=== PATIENT | male | born 1970 | race Hispanic/Latino ===

== ENCOUNTER 2019-03-01 15:57 | Emergency (ER) | payer OTHER ==
--- NOTE | 2019-03-01 17:13 | RAD REPORT ---
EXAM DESCRIPTION: RAD - Pelvis - 03/01/2019 4:53 pm CLINICAL HISTORY: Pelvic pain status post injury FINDINGS: No fracture or dislocation is seen. If the patient continues to have symptoms to suggest an occult fracture then MRI would be recommended
[2019-03-01] MEDS ORDERED: HYDROCODONE/APAP 7.5/325 MG TAB ONE (17:32)
--- NOTE | 2019-03-01 17:33 | ER ---
Nurse's Notes [facility] [place] Name: Ty Bernal Age: 48 yrs Sex: Male : 1970 Arrival Date: 03/01/2019 Time: 15:59 Bed 25 Private MD: Diagnosis: Contusion of lower back and pelvis;Fall on same level from slipping, tripping and stumbling Presentation: 03/01 16:06 Presenting complaint: Patient states: "I fell in the shower, 30-40 minutes ago and I ss hit right here above my hip and I just want to make sure I didn't mess anything up inside." Also reports that he may have cut a toe on his L foot. Transition of care: patient was not received from another setting of care. Onset of symptoms was March 01, 2019. Risk Assessment: Do you want to hurt yourself or someone else? Patient reports no desire to harm self or others. Initial Sepsis Screen: Does the patient meet any 2 criteria? No. Patient's initial sepsis screen is negative. Does the patient have a suspected source of infection? No. Patient's initial sepsis screen is negative. Care prior to arrival: None. 16:06 Method Of Arrival: Wheelchair ss 16:06 Acuity: SHAUN 3 ss Historical: - Allergies: 16:09 No Known Allergies; ss - PMHx: 16:09 Hypertension; Diabetes - IDDM; ss - PSHx: 16:09 L foot; ss - Immunization history:: Adult Immunizations up to date. - Social history:: Smoking status: Patient/guardian denies using tobacco. - Ebola Screening: : Patient denies exposure to infectious person Patient denies travel to an Ebola-affected area in the 21 days before illness onset. Screenin:35 Abuse screen: Denies threats or abuse. Nutritional screening: No deficits noted. em Tuberculosis screening: No symptoms or risk factors identified. Fall Risk Fall in past 12 months (25 points). Total Cueto Fall Scale indicates Low Risk Score (25-44 pts). Side Rails Up X 2 Placed close to Nursing Station Family Present and informed to notify staff if they need to leave bedside. Assessment: 16:25 General: Appears in no apparent distress. comfortable, Behavior is calm, cooperative, em appropriate for age. Pain: Complains of pain in pelvis and left foot. Neuro: Level of Consciousness is awake, alert, obeys commands, Oriented to person, place, time, situation, Appropriate for age. Cardiovascular: Capillary refill < 3 seconds Patient's skin is warm and dry. Respiratory: Airway is patent Respiratory effort is even, unlabored, Respiratory pattern is regular, symmetrical. Derm: Skin is intact, is healthy with good turgor, Skin is pink, warm \\T\\ dry. Musculoskeletal: Capillary refill < 3 seconds, Range of motion: intact in all extremities. Injury Description: Abrasion sustained to plantar aspect of left first toe. 17:38 Reassessment: rates pain 9/10, provider notified, new medication orders received. em Vital Signs: 16:09 Resp 16; Weight 106.59 kg; Height 6 ft. 0 in. (182.88 cm); Pain 10/10; ss 16:09 Temp 98.7(TE); ss 16:09 BP 132 / 85; Pulse 90 MON; Pulse Ox 99% on R/A; jp3 17:28 BP 121 / 81; Pulse 91; Resp 16 S; Pulse Ox 100% ; ca1 16:09 Body Mass Index 31.87 (106.59 kg, 182.88 cm) ss ED Course: 15:59 Patient arrived in ED. rg4 16:08 Triage completed. ss 16:09 Arm band placed on right wrist. ss 16:12 Kaushik Varela LVN is Primary Nurse. em 16:19 Ga Quintero NP is PHCP. pm1 16:19 Jeremy Mays MD is Attending Physician. pm1 16:26 Patient maintains SpO2 saturation greater than 95% on room air. Wound care: to jp3 abrasion, located on plantar aspect of left first toe was cleaned with Hibiclens, dressed with Neosporin, band aid. Wound care: was dressed with Patient tolerated well. 16:28 Safety checks: Family/friend present: yes. Bed in low position. Call light in reach. jp3 Side rails up X 1. Warm blanket given. Verbal reassurance given. Pulse ox on. NIBP on. 16:45 Pelvis XRAY In Process Unspecified. EDMS 17:54 No provider procedures requiring assistance completed. Patient did not have IV access em during this emergency room visit. Administered Medications: 17:31 Drug: Shevlin (7.5 mg-325 mg) 1 tabs {Note: RASS-0.} Route: PO; em 17:57 Follow up: Response: No adverse reaction em Outcome: 17:32 Discharge ordered by MD. pm1 17:54 Discharged to home via wheelchair, with family. em 17:54 Condition: good 17:54 Discharge instructions given to patient, family, Instructed on discharge instructions, follow up and referral plans. medication usage, Demonstrated understanding of instructions, follow-up care, medications, Prescriptions given X 1. 17:57 Patient left the ED. em Signatures: Dispatcher [employer] EDKaushik Guadarrama, PALLETISER OPERATOR PALLETISER OPERATOR Suzanne Molina, RN RN ss Ga Quintero, [employer]QUIPMENT INSTALLATION PROFESSIONAL pm1 Tia Chavarria rg4 Maximus Robertson jp3 Sirisha Copeland RN RN ca1
--- NOTE | 2019-03-01 17:34 | EDPHYS ---
Physician Documentation [facility] Name: Ty Bernal Age: 48 yrs Sex: Male : 1970 Arrival Date: 03/01/2019 Time: 15:59 Bed 25 Private MD: ED Physician Jeremy Mays HPI: 03/01 17:18 This 48 yrs old Male presents to ER via Wheelchair with complaints of Fall pm1 Injury. 17:18 Details of fall: The patient fell from an upright position, while standing, and struck pm1 a tile surface. Onset: The symptoms/episode began/occurred just prior to arrival. Associated injuries: The patient sustained right lower back - iliac crest. Severity of symptoms: in the emergency department the symptoms are actually worse. The patient has not experienced similar symptoms in the past. The patient has not recently seen a physician. Patient just got out of the shower and slipped on the floor landing on the right side of lower back. Presenting with cut to left great toe and pain to right lower back. Patient able to walk without any difficulty and no pain to either hips. No headache, head injury, neck pain, or LOC. Historical: - Allergies: 16:09 No Known Allergies; ss - PMHx: 16:09 Hypertension; Diabetes - IDDM; ss - PSHx: 16:09 L foot; ss - Immunization history:: Adult Immunizations up to date. - Social history:: Smoking status: Patient/guardian denies using tobacco. - Ebola Screening: : Patient denies exposure to infectious person Patient denies travel to an Ebola-affected area in the 21 days before illness onset. ROS: 17:18 Constitutional: Negative for fever, chills, and weight loss, Neck: Negative for injury, pm1 pain, and swelling, Cardiovascular: Negative for chest pain, palpitations, and edema, Respiratory: Negative for shortness of breath, cough, wheezing, and pleuritic chest pain, Abdomen/GI: Negative for abdominal pain, nausea, vomiting, diarrhea, and constipation. 17:18 : Negative for injury, bleeding, discharge, and swelling, MS/Extremity: Negative for injury and deformity, Neuro: Negative for headache, weakness, numbness, tingling, and seizure. 17:18 Back: Positive for of the right low back. 17:18 Skin: Positive for laceration(s), of the plantar aspect of left first toe. Exam: 17:18 Constitutional: This is a well developed, well nourished patient who is awake, alert, pm1 and in no acute distress. Head/Face: Normocephalic, atraumatic. Neck: Trachea midline, no thyromegaly or masses palpated, and no cervical lymphadenopathy. Supple, full range of motion without nuchal rigidity, or vertebral point tenderness. No Meningismus. Chest/axilla: Normal chest wall appearance and motion. Nontender with no deformity. No lesions are appreciated. Cardiovascular: Regular rate and rhythm with a normal S1 and S2. No gallops, murmurs, or rubs. Normal PMI, no JVD. No pulse deficits. Respiratory: Lungs have equal breath sounds bilaterally, clear to auscultation and percussion. No rales, rhonchi or wheezes noted. No increased work of breathing, no retractions or nasal flaring. Abdomen/GI: Soft, non-tender, with normal bowel sounds. No distension or tympany. No guarding or rebound. No evidence of tenderness throughout. 17:18 Back: normal spinal alignment noted, vertebral tenderness, is not appreciated, tenderness to right posterior iliac crest. 17:18 Skin: Appearance: normal except for affected area, injury, laceration(s), that can be described as clean, no foreign body, linear, small paper cut like appearance to plantar aspect of posterior left great toe. 17:30 Musculoskeletal/extremity: Extremities: Patient able to move both hips and legs full pm1 range of motion without any pain passively to hips or legs. Vital Signs: 16:09 Resp 16; Weight 106.59 kg; Height 6 ft. 0 in. (182.88 cm); Pain 10/10; ss 16:09 Temp 98.7(TE); ss 16:09 BP 132 / 85; Pulse 90 MON; Pulse Ox 99% on R/A; jp3 17:28 BP 121 / 81; Pulse 91; Resp 16 S; Pulse Ox 100% ; ca1 16:09 Body Mass Index 31.87 (106.59 kg, 182.88 cm) ss MDM: 16:33 Patient medically screened. pm1 17:18 ED course: Patient took pain medication prior to arrival. Offered pain medication. pm1 Patient refused. 17:29 Data reviewed: vital signs. Data interpreted: Pulse oximetry: on room air is 100 %. pm1 Interpretation: normal. Counseling: I had a detailed discussion with the patient and/or guardian regarding: the historical points, exam findings, and any diagnostic results supporting the discharge/admit diagnosis, radiology results, the need for outpatient follow up, to return to the emergency department if symptoms worsen or persist or if there are any questions or concerns that arise at home. 03/01 16:32 Order name: Pelvis XRAY; Complete Time: 17:18 pm1 Administered Medications: 17:31 Drug: [place] (7.5 mg-325 mg) 1 tabs {Note: RASS-0.} Route: PO; em 17:57 Follow up: Response: No adverse reaction em Disposition: 03/01/19 17:32 Discharged to Home. Impression: Contusion of lower back and pelvis, Fall on same level from slipping, tripping and stumbling. - Condition is Stable. - Discharge Instructions: Contusion, Fall Prevention in the Home. - Prescriptions for Tylenol- Codeine #3 300-30 mg Oral Tablet - take 2 tablets by ORAL route every 6 hours As needed; 20 tablet. - Medication Reconciliation Form, Thank You Letter, Antibiotic Education, Prescription Opioid Use form. - Follow up: Emergency Department; When: As needed; Reason: Worsening of condition. Follow up: Private Physician; When: 2 - 3 days; Reason: Recheck today's complaints, Continuance of care, Re-evaluation by your physician. - Problem is new. - Symptoms have improved. Addendum: 03/04/2019 06:39 Co-signature as Attending Physician, Jeremy Mays MD I agree with the assessment and k dr plan of care. Signatures: Dispatcher [employer] EDID Jeremy Mays MD MD kdr Kaushik Varela, TROLLEY CAR OPERATOR TROLLEY CAR OPERATOR em Suzanne Dixon, KATIE RN ss Ga Quintero NP [employer] OUTREACH WORKER pm1 Corrections: (The following items were deleted from the chart) 03/01 17:57 17:32 03/01/2019 17:32 Discharged to Home. Impression: Contusion of lower back and em pelvis; Fall on same level from slipping, tripping and stumbling. Condition is Stable. Forms are Medication Reconciliation Form, Thank You Letter, Antibiotic Education, Prescription Opioid Use. Follow up: Emergency Department; When: As needed; Reason: Worsening of condition. Follow up: Private Physician; When: 2 - 3 days; Reason: Recheck today's complaints, Continuance of care, Re-evaluation by your physician. Problem is new. Symptoms have improved. pm1
[2019-03-01 18:40] VITALS: BP 132/85; TEMP 98.7; O2SAT 99
== END 2019-03-01 17:57 | disposition home or self-care (01) ==
LOC: ER 15:57
DX: S30.0XXA Contusion of lower back and pelvis, initial encounter (principal); W18.2XXA Fall in (into) shower or empty bathtub, initial encounter; Y93.E1 Activity, personal bathing and showering; Y92.9 Unspecified place or not applicable; I10 Essential (primary) hypertension
CPT/HCPCS: 72170; 99284